=== PATIENT | male | born 1950 | race African-American/Black ===

== ENCOUNTER 2025-10-07 10:04 | Inpatient (IN) | payer OTHER ==
[2025-10-07] MEDS ORDERED: Dextrose 50% Abboject 50 ML SYRINGE ONE (10:33)
[2025-10-07 10:42] LABS: #Basophils Less than 0.03 10x3/uL (0.0-0.2); #Eosinophils Less than 0.03 10x3/uL (0.0-0.5); #Monocytes 0.72 10x3/uL (0.0-1.1); #Neutrophils 5.04 10x3/uL (1.5-8.4); %Basophils 0.3 % (0.0-2.0); %Eosinophils 0.1 % (0.0-6.0); %Lymphocytes 24.0 % (18.0-47.0); %Monocytes 9.3 % (0.0-10.0); %Neutrophils 65.4 % (40.0-75.0); Hematocrit 42.6 % (38.8-50.0); Hemoglobin 13.6 g/dL (13.5-17.5); Mean Corpuscular Hemoglobin 30.9 pg (27.0-33.0); Mean Corpuscular Volume 96.8 fL (81.2-95.1); Platelet Count 322 10x3/uL (150-450); Red Blood Cell (RBC) Count 4.40 10x6/uL (4.32-5.72); White Blood Cell (WBC) Count 7.71 10x3/uL (3.5-10.5)
[2025-10-07 11:02] LABS: Glucose, Urine (Dipstick) 250 mg/dL (Negative); Leukocyte Negative (Negative); Protein, Urine (Dipstick) 100 mg/dl (Neg-Trace); Specific Gravity, Urine 1.020 (1.005-1.030)
[2025-10-07 11:14] LABS: Bacteria/HPF None Seen HPF (None Seen); CAUTI Indications for Culture Alt mental st,lethar; RBC/HPF 0-3 HPF (0-3); WBC/HPF 0-3 HPF (0-3)
[2025-10-07 11:15] LABS: Urine Culture Reflex No No
[2025-10-07 11:21] LABS: ALT (SGPT) 49 U/L (Less than 45); AST (SGOT) 33 U/L (11-34); Albumin 3.2 g/dL (3.1-4.5); Alkaline Phosphatase 101 U/L (40-110); Anion Gap 15 mmol/L (10-20); BUN (Urea Nitrogen) 30 mg/dL (8.4-25.7); Bilirubin, Total 0.5 mg/dL (0.3-1.2); Calc. Creatinine Clearance 0 mL/min (70-130); Calcium 9.1 mg/dL (7.8-10.44); Carbon Dioxide 25 mmol/L (23-31); Chloride 120 mmol/L (98-107); Globulin 5.7 g/dL (2.4-3.5); Glucose 100 mg/dL (83-110); Potassium 3.5 mmol/L (3.5-5.1)
[2025-10-07 11:51] LABS: Sodium 156 mmol/L (136-145)
[2025-10-07] MEDS ORDERED: Senokot S 8.6-50 MG TAB PO PRN (14:06)
[2025-10-07] MEDS ORDERED: Acetaminophen 325 MG TAB PO PRN (14:06)
[2025-10-07 16:22] LABS: Anion Gap 11 mmol/L (10-20); BUN (Urea Nitrogen) 24 mg/dL (8.4-25.7); Calc. Creatinine Clearance 52 mL/min (70-130); Calcium 8.7 mg/dL (7.8-10.44); Carbon Dioxide 24 mmol/L (23-31); Chloride 123 mmol/L (98-107); Glucose 103 mg/dL (83-110); Potassium 3.4 mmol/L (3.5-5.1)
[2025-10-07 16:29] LABS: Sodium 155 mmol/L (136-145)
[2025-10-07] MEDS: FLU (Fluad Triv) 25-26 (65UP)PF 45 MCG/0.5 ML Syringe IM ONE (17:04)
[2025-10-07] MEDS: Famotidine 20 MG TAB PO SCH (19:28)
[2025-10-07 20:28] LABS: Anion Gap 10 mmol/L (10-20); BUN (Urea Nitrogen) 22 mg/dL (8.4-25.7); Calc. Creatinine Clearance 49 mL/min (70-130); Calcium 8.6 mg/dL (7.8-10.44); Carbon Dioxide 25 mmol/L (23-31); Chloride 124 mmol/L (98-107); Glucose 115 mg/dL (83-110); Potassium 3.7 mmol/L (3.5-5.1)
[2025-10-07 20:32] LABS: Sodium 155 mmol/L (136-145)
[2025-10-08 00:54] LABS: Anion Gap 12 mmol/L (10-20); BUN (Urea Nitrogen) 22 mg/dL (8.4-25.7); Calc. Creatinine Clearance 50 mL/min (70-130); Calcium 8.9 mg/dL (7.8-10.44); Carbon Dioxide 25 mmol/L (23-31); Chloride 122 mmol/L (98-107); Glucose 99 mg/dL (83-110); Potassium 3.8 mmol/L (3.5-5.1)
[2025-10-08 00:56] LABS: Sodium 155 mmol/L (136-145)
[2025-10-08 06:01] LABS: Anion Gap 13 mmol/L (10-20); BUN (Urea Nitrogen) 20 mg/dL (8.4-25.7); Calc. Creatinine Clearance 51 mL/min (70-130); Calcium 8.9 mg/dL (7.8-10.44); Carbon Dioxide 25 mmol/L (23-31); Chloride 120 mmol/L (98-107); Glucose 96 mg/dL (83-110); Potassium 3.8 mmol/L (3.5-5.1)
[2025-10-08 06:04] LABS: Sodium 154 mmol/L (136-145)
[2025-10-08] MEDS ORDERED: Mometasone 200 MCG/Formoterol 5 MCG 60 PUFF INHALER INH PRN (07:56)
[2025-10-08] MEDS: Enoxaparin 30 MG (0.3 mL) SYRINGE SC SCH (08:45)
[2025-10-08 13:21] LABS: Sodium 150 mmol/L (136-145)
[2025-10-08] MEDS: Mometasone 100 MCG/Formoterol 5 MCG 60 PUFF AEROSOL INH PRN (18:50)
[2025-10-08] MEDS: Melatonin 3 MG TAB PO PRN (21:07)
[2025-10-08 21:26] LABS: Sodium 146 mmol/L (136-145)
[2025-10-09 05:06] LABS: Sodium 146 mmol/L (136-145)
[2025-10-09 13:08] LABS: Sodium 142 mmol/L (136-145)
[2025-10-09] MEDS: guaiFENesin/Codeine Phosphate 100 mg/10 mg 5 ml UD Cup PO PRN (14:50)
[2025-10-09 19:33] LABS: Sodium 140 mmol/L (136-145)
[2025-10-10 05:48] LABS: Sodium 140 mmol/L (136-145)
[2025-10-10] MEDS: Aspirin 81 mg Enteric Coated Tablet PO SCH (08:58)
[2025-10-10 12:45] VITALS: BP 118/66; TEMP 98.3
== END 2025-10-10 12:21 | DRG 640 ==
LOC: CSHERS 10:04 → CSHTELE 13:07
PROVIDERS: ADMIT Student in an Organized Health Care Education/Training Program; ATTEND Internal Medicine
DX: E87.0 Hyperosmolality and hypernatremia (principal); G93.41 Metabolic encephalopathy; J90 Pleural effusion, not elsewhere classified; J44.9 Chronic obstructive pulmonary disease, unspecified; F03.C0 Unspecified dementia, severe, without behavioral disturbance, psychotic disturbance, mood disturbance, and anxiety; Z86.73 Personal history of transient ischemic attack (TIA), and cerebral infarction without residual deficits; I10 Essential (primary) hypertension; E78.5 Hyperlipidemia, unspecified; K21.9 Gastro-esophageal reflux disease without esophagitis; N40.0 Benign prostatic hyperplasia without lower urinary tract symptoms; M19.90 Unspecified osteoarthritis, unspecified site; E86.9 Volume depletion, unspecified; J43.9 Emphysema, unspecified; Z87.440 Personal history of urinary (tract) infections; Z66 Do not resuscitate; Z79.899 Other long term (current) drug therapy; Z79.82 Long term (current) use of aspirin; E86.0 Dehydration
CPT/HCPCS: 36415; 36416; 51701; 70450; 71045; 80048; 80053; 81001; 83605; 84295; 85025; 87040; 87086; 87428; 93005; 94640; 94664; 96361; 96374; J1650; J7070; J7999